=== PATIENT | male | born 1990 | race Caucasian/White ===

== ENCOUNTER 2018-10-22 14:36 | Emergency (ER) | payer OTHER ==
[~2018-10-22] VITALS: Ht 180.3 cm; Wt 63.5 kg
[2018-10-22 15:57] VITALS: BP 130/78
== END 2018-10-22 15:57 | disposition home or self-care (01) ==
LOC: M.ERS 14:36
DX: S51.812A Laceration without foreign body of left forearm, initial encounter (principal); F17.210 Nicotine dependence, cigarettes, uncomplicated; W26.0XXA Contact with knife, initial encounter; Y93.89 Activity, other specified; Y92.89 Other specified places as the place of occurrence of the external cause; Y99.8 Other external cause status